=== PATIENT | male | born 1995 | race Caucasian/White ===

== ENCOUNTER 2019-01-26 19:18 | Emergency (ER) | payer OTHER ==
[~2019-01-26] VITALS: Ht 182.9 cm; Wt 97.6 kg
--- OUTSIDE RECORDS SUMMARY | 2019-01-26 19:21 | XMS REPORT | Continuity of Care Document ---
Author Author [facility] Interface Address Unknown Phone Unavailable Problems Problem Status Onset Date Classification Date Reported Comments Source Acute left otitis media 04/21/2017 Diagnosis 04/21/2017 [facility] Medications Medication Details Route Status Patient Instructions Ordering Provider Order Date Source Amoxicillin 875 MG Oral Tablet amoxicillin 875 mg tablet Take 1 tablet every 12 hours by oral route as directed for 10 days. Active [facility] Fluticasone propionate 0.05 MG/ACTUAT Metered Dose Nasal [place] fluticasone 50 mcg/actuation nasal spray,suspension [place] 1 spray every day by intranasal route as needed for 10 days. Active [facility] Allergies, Adverse Reactions, Alerts Substance Category Reaction Severity Reaction type Status Date Reported Comments Source Immunizations Immunization Date Given Site Status Last Updated Comments Source Results Order Name Results Value Reference Range Date Interpretation Comments Source Vital Signs Vital Sign Value Date Comments Source Diastolic (mm Hg) 84 04/21/2017 [facility] Height 72 04/21/2017 [facility] Systolic (mm Hg) 120 04/21/2017 [facility] Weight 189 04/21/2017 [facility] Encounters Location Location Details Encounter Type Encounter Number Reason For Visit Attending Provider ADM Date DC Date Status Source [place] - [facility] - [id number] Jaqui Choudhary, FIRESTOPPER TECHNICIAN-C: [address] [place] [address], Ph. [id number] Jaqui Choudhary 04/21/2017 [facility] Procedures Procedure Code Date Perfomer Comments Source
--- OUTSIDE RECORDS SUMMARY | 2019-01-26 19:21 | XMS REPORT ---
Author Author [facility] Address Unknown Phone Unavailable Care Team Providers Care Assembly Room Supervisor Name Role Phone Unavailable Unavailable Payers Payer Name Policy Type Policy Number Effective Date Expiration Date Problems This patient has no known problems. Allergies, Adverse Reactions, Alerts Allergy Name Allergy Type Status Severity Reaction(s) Onset Date Inactive Date Treating Clinician Comments braxton kokiCruz Active [facility] 2018-12-02 00:00:00 Medications This patient has no known medications.
--- OUTSIDE RECORDS SUMMARY | 2019-01-26 19:21 | XMS REPORT | Encounter Summary ---
Author Organization Unknown Address [address] [place] [id number] Phone [phone] Care Team Providers Care Property Assistant Name Role Phone [facility] 3 [phone] Reason for Visit Left Medical Complaint Instructions 1. Acute left otitis media amoxicillin 875 mg tablet fluticasone 50 mcg/actuation nasal spray,suspension Discussion Note Pt is in NAD; Verbalizes understanding of all instructions with no questions at this time. Patient educational handouts: No information available. Plan of Care Patient Instructions Alternate with Ibuprofen and acetaminophen every 4hrs as needed for pain Proper hydration and rest. Take antibiotics with food and recommend start a probiotic to avoid GI discomfort. Take medications as prescribed. Return to clinic or f/u with your PCP within 2-3 days if symptoms worsen as discussed. Reminders Provider Appointments None recorded. Lab None recorded. Referral None recorded. Procedures None recorded. Surgeries None recorded. Imaging None recorded. Medications Name Start Date amoxicillin 875 mg tablet Take 1 tablet every 12 hours by oral route as directed for 10 days. fluticasone 50 mcg/actuation nasal spray,suspension [place] 1 spray every day by intranasal route as needed for 10 days. Medications Administered None recorded. Vitals Height Weight BMI Blood Pressure 6 ft 189 lbs 25.6 120/84 Lab Results None recorded. Allergies Code Code System Name Reaction Severity Onset NKDA Problems None recorded. Procedures None recorded. Vaccine List None recorded. Social History Smoking Status Former Smoker Past Encounters 04/21/2017 Acute Left Otitis Media Jaqui Choudhary, KLAUDIA-C: [address] [place] [address], Ph. History of Present Illness Ear Complaint Reported By: Patient HPI: Location: left. Quality: throbbing, dull. Severity: continuous. Duration: constant; 1 day. Onset/Timing: abrupt onset. Context: no sick contacts, no recent swimming/water in ear, no exposure to second hand smoke, no head trauma, not grinding teeth, no recent air travel. Modifying factors: does not hurt to lie on, or pull on ear, does not hurt to chew. Associated Symptoms: no discharge from the ears, no nose/sinus problems, no popping noise in the ears, no ringing in the ears, no fever, no chills, no dizziness, no vertigo, no headache, no muscle aches, earache Review of Systems:ROS as noted in the HPI Review of Systems Basic Reported By: Patient Physical Exam Adult Basic, 14-21 Yr Male, Adult Female Complete, Adult Male Complete Reported By: Patient Constitutional: General Appearance: healthy-appearing, well-nourished, well-developed. Level of Distress: NAD. Ambulation: ambulating normally Psychiatric: Mental Status: active and alert. Orientation: to time, to place, to person [place]-Throat: Ears: no lesions on external ear, no outer ear tenderness, EACs clear, TM erythematous, TM bulging. Hearing: no hearing loss. Nose: no lesions on external nose, nares patent, no septal deviation, nasal passages clear, no sinus tenderness, post nasal drip. Lips, Teeth, and Gums: no mouth or lip ulcers, no bleeding gums, normal dentition. Oropharynx: moist mucous membranes, no erythema, no exudates, tonsils not enlarged Neck: Neck: supple. Lymph Nodes: no cervical LAD Lungs: Respiratory effort: no dyspnea, no tachypnea, no use of accessory muscles, no intercostal retractions. Auscultation: breath sounds normal Cardiovascular: Heart Auscultation: RRR, no murmurs Neurologic: Gait and Station: normal gait, normal station
[2019-01-26] MEDS ORDERED: IBUPROFEN 600 MG TAB PO STA (19:36)
[2019-01-26] MEDS ORDERED: HYDROCODONE/APAP 5MG-325MG TAB PO ONE (19:45)
--- NOTE | 2019-01-26 19:45 | NUR ---
ultrasound called for pt
--- NOTE | 2019-01-26 20:52 | Diagnostic Imaging Report ---
Testicular/scrotal ultrasound CPT code: 83988, 19665 Indication:Left testicular pain Technique: Multiple static images from testicular ultrasound provided for review. Comparison: No prior studies for comparison. Findings: Right testicle measures 2.6 x 3.6 x 3.9 cm. Epididymal head measures 10 mm. The testis is homogeneous in echo texture without mass. Vascular flow documented within. Left testicle measures 2.2 x 3.0 x 3.7 cm. Epididymal head measures 11 mm. The testis is homogeneous in echo texture without mass. Vascular flow documented within. Blood flow: Normal color Doppler and spectral Doppler waveforms are present in the testes. Small bilateral hydroceles. No varicoceles. IMPRESSION: 1. Normal testes. No torsion. 2. Small bilateral pleural effusions. 3. No sonographic evidence of testicular or epididymal inflammation. Signed by: Dr. Anneliese Severino MD on 01/26/2019 8:48 PM
[2019-01-27 02:27] VITALS: BP 120/74
== END 2019-01-26 21:36 | disposition home or self-care (01) ==
LOC: FSED 19:18
DX: N50.811 Right testicular pain (principal); N43.3 Hydrocele, unspecified
CPT/HCPCS: 76870